=== PATIENT | female | born 1960 | race Caucasian/White ===

== ENCOUNTER 2019-07-24 12:40 | Inpatient (IN) | payer BC ==
[2019-07-24] VITALS (371 sets, daily range): BP systolic 146–179; BP diastolic 80–95; PULSE 93–101; TEMP 97.5–98.3; O2SAT 87–100
[~2019-07-24] VITALS: Ht 165.1 cm; Wt 79.3 kg
--- NOTE | 2019-07-24 13:00 | NUR ---
Patient arrives via EMS, She is very short of breath with exertion. 6L O2 nasal cannula. Patient placed in Contact/Droplet isolation, d/t being PUI. Dr. Novak notified of arrival. Patient turned up to 8LO2 and METAL BONDER, Patience called to notify.
[2019-07-24] MEDS ORDERED: PREDNISONE10 MG PO (14:42)
[2019-07-24] MEDS ORDERED: 00186-0370-20 IH (14:43)
[2019-07-24] MEDS ORDERED: ALBUTEROL0.83 MG/ML IH (14:43)
[2019-07-24] MEDS ORDERED: PROAIR HFA0.09 MG/AC IH (14:43)
[2019-07-24 14:59] LABS: ARTERIAL BLD GAS O2 SATURATION 90.7 % (92-100); ARTERIAL BLOOD GAS BASE EXCESS -1.3 (-2-2); ARTERIAL BLOOD GAS HCO3 23.7 meq/L (22-26); ARTERIAL BLOOD GAS PCO2 41.1 mmHg (35-45); ARTERIAL BLOOD GAS PO2 60.2 mmHg (80-100); ARTERIAL BLOOD GAS pH 7.38 (7.35-7.45)
--- NOTE | 2019-07-24 15:00 | NUR ---
Patient is up to 15L NRB mask. RR in 40s. SPo2 95%. Patient, COLLECTIONS ANALYST to give her a duoneb.
--- NOTE | 2019-07-24 18:00 | NUR ---
Phone update given to daughter, Martha.
--- NOTE | 2019-07-24 19:00 | NUR ---
Mame, Daughter, updated at this time. Plan of care discussed.
--- NOTE | 2019-07-24 19:15 | NUR ---
Report given to SELWYN Nieto. Patient resting in bed on 15L NRB mask. RR 40.
[2019-07-24 20:24] LABS: ARTERIAL BLD GAS O2 SATURATION 88.8 % (92-100); ARTERIAL BLD GAS TCO2 CT 23.4; ARTERIAL BLOOD GAS BASE EXCESS -2.3 (-2-2); ARTERIAL BLOOD GAS HCO3 22.2 meq/L (22-26); ARTERIAL BLOOD GAS PCO2 37.9 mmHg (35-45); ARTERIAL BLOOD GAS PO2 57.3 mmHg (80-100); ARTERIAL BLOOD GAS pH 7.39 (7.35-7.45)
[2019-07-24 22:25] LABS: ARTERIAL BLD GAS O2 SATURATION 98.4 % (92-100); ARTERIAL BLD GAS TCO2 CT 23.3; ARTERIAL BLOOD GAS BASE EXCESS -2.9 (-2-2); ARTERIAL BLOOD GAS HCO3 22.1 meq/L (22-26); ARTERIAL BLOOD GAS PCO2 39.7 mmHg (35-45); ARTERIAL BLOOD GAS pH 7.36 (7.35-7.45)
[2019-07-24 22:26] LABS: ARTERIAL BLOOD GAS PO2 135.7 mmHg (80-100)
--- NOTE | 2019-07-24 22:52 | NUR ---
2032 - DR. CARBALLO CALLED BY THIS RN PT'S BLOOD GAS CAME BACK GOOD EXCEPT FOR A LOW O2. RT SUGGESTING HIGH FLOW INSTEAD OF BIPAP, AGREED AND ORDERED REPAT BIPAP AFTER AN HOUR, ORDER PUT IN.
--- NOTE | 2019-07-24 23:01 | NUR ---
REPEAT BLOOD GAS REVEALED HIGH O2 AT 135.7, RT WILL TITRATE DOWN AIRVO. PT RESTING IN BED SLEEPIN, VSS.
[2019-07-25] VITALS (978 sets, daily range): BP systolic 123–161; BP diastolic 95–112; PULSE 87–109; TEMP 98–99.1; O2SAT 89–100
[2019-07-25 04:18] LABS: ARTERIAL BLD GAS O2 SATURATION 95.2 % (92-100); ARTERIAL BLD GAS TCO2 CT 25.3; ARTERIAL BLOOD GAS BASE EXCESS -2.4 (-2-2); ARTERIAL BLOOD GAS HCO3 23.9 meq/L (22-26); ARTERIAL BLOOD GAS PCO2 46.4 mmHg (35-45); ARTERIAL BLOOD GAS PO2 82.1 mmHg (80-100); ARTERIAL BLOOD GAS pH 7.33 (7.35-7.45)
[2019-07-25 04:27] LABS: BASO % 0.2 % (0.0-2.0); GRAN # 13.9 (1.4-6.5); HEMATOCRIT 46.5 % (37.0-47.0); HEMOGLOBIN 15.3 g/dl (12.5-16.0); LYMPH # 1.1 (1.2-3.4); LYMPH % 6.6 % (20.0-51.0); MEAN CELL VOLUME 93 fl (80.0-100.0); MEAN CORPUSCULAR HEMOGLOBIN 31 pg (27.0-31.0); MEAN CORPUSCULAR HGB CONC 33 g/dl (33.0-37.0); MEAN PLATELET VOLUME 9.1 fl (7.4-10.4); MONO # 0.8 (0.1-0.6); MONO % 5.2 % (1.7-9.3); PLATELET COUNT 320 K/mm3 (130-400); RED BLOOD COUNT 4.98 M/mm3 (4.10-5.30); REDCELL DISTRIBUTION WIDTH-CV 12.7 % (11.5-14.5)
[2019-07-25 05:17] LABS: CALCIUM 9.7 mg/dL (8.4-10.2); CREATININE, serum 0.48 (0.52-1.25); MAGNESIUM 2.4 mg/dL (1.6-2.3); POTASSIUM 4.8 mmol/L (3.4-5.0)
[2019-07-25 05:52] LABS: ARTERIAL BLD GAS O2 SATURATION 95.1 % (92-100); ARTERIAL BLD GAS TCO2 CT 24.5; ARTERIAL BLOOD GAS BASE EXCESS -2.6 (-2-2); ARTERIAL BLOOD GAS HCO3 23.2 meq/L (22-26); ARTERIAL BLOOD GAS PCO2 43.3 mmHg (35-45); ARTERIAL BLOOD GAS PO2 80.8 mmHg (80-100); ARTERIAL BLOOD GAS pH 7.35 (7.35-7.45)
--- NOTE | 2019-07-25 07:30 | NUR ---
Bedside shift report received from SELWYN Nieto. Patient is lying in bed currently on BiPAP at 60%. Patient continues to have labored, shallow breathing, but vital signs stable. Full assessment completed. Call light within reach. Bed in lowest position. Side rails up x2. Patient has no complaints or concerns at this time.
--- NOTE | 2019-07-25 07:36 | NUR ---
report given to SELWYN Roe.
--- NOTE | 2019-07-25 09:30 | NUR ---
Patient's family, Mame, updated on patient's current status and plan of care.
--- NOTE | 2019-07-25 10:09 | NUR ---
DECREASED SETTINGS AT THIS TIME. IPAP DECREASED TO 16 (FROM20) AND IPAP DECREASED TO 8 (FROM10) FIO2 DECREASED TO 50%. PT IS STILL TACHYPNEIC.
--- NOTE | 2019-07-25 13:27 | NUR ---
Patient presses call light and states "I can't breathe". Patient heart rate in the low 100's, respiratory rate 45-50. Patient instructed to take slow deep breaths and patient attempts but is unable. She states she wants the BiPAP off. Patient taken off of BiPAP and placed on nonrebreather at 15L. Oxygen saturations have no dipped below 95% the entire time. Patience, RT called and notified of taking patient off BiPAP and patient's current respiratory status. Pulmonogist notified of patient's current status as well, orders received for NOW dose of Ativan. Refer to orders and MAR.
--- NOTE | 2019-07-25 13:38 | NUR ---
Ativan given, patient breathing starts to come down and patient starts to relax a bit more as RN in the room and talking with her. Patient asked if she feels like she starts to panick and can't catch her breath. Patient responds "Yes". Patient says she feels anxious and it makes her breathing worse. After about 5 minutes, patient placed back on BiPAP per her request and is tolerating well at this time.
--- NOTE | 2019-07-25 16:44 | NUR ---
Patient's vital signs are stable with respiratory rate between 28-32. Patient is calm and resting, but continues to use her accessory muscles to breathe and has dyspnea at rest. Hospitalist, structural steel equipment erector, and RT aware. Increased dose of solumedrol Dr. Marks ordered will be given at 1800 and patient is optimistic that it will improve her symptoms.
--- NOTE | 2019-07-25 18:00 | NUR ---
Patient becomes more tachypneic with resp rate in the low to mid 40's and is having more labored breathing. Patient states she has anxiety and feels claustrophobic. Patient talked calmly to and educated to take slow, deep breaths and a cool damp cloth was placed on her chest. Solumedrol given per doctors order, patient assisted to bedside commode without complication, and once back in bed and allowed to rest for a few minutes she is able to calm down a bit. She continues to have dyspnea that is unchanged from the beginning of shift. Dr. Ochoa notified of this event, no orders received at this time.
--- NOTE | 2019-07-25 18:50 | NUR ---
Patient has calmed down for the most part, but continues to have dyspnea that is unchanged from the beginning of the shift. She remains on BiPAP at this time.
--- NOTE | 2019-07-25 19:26 | NUR ---
Bedside shift report given to SELWYN Trinh at this time. Both Vee and another daughter were updated via telephone on their mom's current status and have no questions or concerns at this time.
--- NOTE | 2019-07-25 20:04 | NUR ---
Assessment complete; Patient visibly short of breath. Shortness of breath is Reports rib pain with cough but denies other sources of pain. PRN ativan administered to help with shortness of air. Wheezing heard throughout lung colon. Currenlty wearing BIPAP. Will continue to monitor.
--- NOTE | 2019-07-25 21:30 | NUR ---
[facility] faxed over COVID19 results: Negative.
[2019-07-26] VITALS (1235 sets, daily range): BP systolic 128–143; BP diastolic 84–94; PULSE 89–103; TEMP 97.7–98.6; O2SAT 82–100
--- NOTE | 2019-07-26 00:05 | NUR ---
Patient stating she does not feel like she is getting "enough air" 02 92% on BIPAP. Labored respirations and appears anxious. Administered PRN ativan to assist with anxiety. Will continue to monitor.
--- NOTE | 2019-07-26 07:20 | NUR ---
This nurse received report from SELWYN Trinh. Patient is resting comfortably in bed. Call light and bedside table are within reach.
--- NOTE | 2019-07-26 07:35 | NUR ---
Report given to SELWYN Boyd and SELWYN Colvin. Patient care transfered.
--- NOTE | 2019-07-26 10:30 | NUR ---
Patient removed from BiPap and was placed on high flow NC. Initially on 15 liters and then decreased to 12 lpm. Maintained SPO2 of 94%. Patient continues to have dyspnea with exertion. Patient exhibits evidence of anxiety and mentioned she is claustrophobic with BiPaP machine and is starting to feel depressed due to her current medical condition. Emotional support provided.
--- NOTE | 2019-07-26 13:09 | NUR ---
SW attempted interview, however patient had continued shortness of breath, and so SW contacted patients Giovanni at [phone] to complete interview. Patients Giovanni and Daughter Martha(same phone number) are both EMR and primary support for patient. patient does not currently have a DPOA per patient's . Patient did not utilize any DME, and her PCP is Dr. Floyd in [place]. PAtient did not have any upcoming appointments. Patient gets her medications from [facility] pharmacy with no complications. patient's denied any needs at this time. Sw will continue to follow. Patient's asked to be contacted and updated.
--- NOTE | 2019-07-26 19:00 | NUR ---
This nurse gave report to SELWYN Garcia. Patient is resting comfortably in bed with call light and bedside table within reach.
--- NOTE | 2019-07-26 19:00 | NUR ---
This nurse gave report to SELWYN Garcia. Patient is resting comfortably in bed with call light and bedside table within reach.
--- NOTE | 2019-07-26 19:40 | NUR ---
RECEIVED REPORT FROM SELWYN JOSHI. PT LYING IN BED WATCHING TV. PT ON 12L HFNC. CALL LIGHT WITHIN REACH.
--- NOTE | 2019-07-26 21:00 | NUR ---
PT PLACED ON BIPAP AT THIS TIME FOR SLEEP BY RT.
[2019-07-27] VITALS (915 sets, daily range): BP systolic 114–159; BP diastolic 76–104; PULSE 67–105; TEMP 97.9–98; O2SAT 66–99
--- NOTE | 2019-07-27 03:52 | NUR ---
PT ASSISTED TO BSC AND BACK TO BED. PT IS TEARFUL AND STATES " I HATE BEING HERE. I WANT TO GO HOME." RR IN THE 30s. POX NOTED TO BE ON RA AFTER A FEWE MINTUES TO BE 76%. PT PLACEDON 12L HFNC AND ENCOURAGED TO TAKE A FEW DEEP BREATHS, FOLLOWS INSTRUCTIONS WELL. PT ASKS FOR SOMETHING TO HELP HER ANXIETY CALM DOWN, SEE MAR. POX INCREASES TO 91-92% ON 12L HFNC. RR STILL IN THE 30s. PT APPEARS TO BE CALMER AND RELAXED. RESPIRATORY EFFORT CLOSELY MONITORED.
--- NOTE | 2019-07-27 03:59 | NUR ---
PT PLACED BACK ON BIPAP NOW THAT HER ANXIETY HAS DECREASED. RR STILL IN 30s. POX 94% ON BIPAP WITH FIO2 OF 45%.
[2019-07-27 05:23] LABS: BASO % 0.1 % (0.0-2.0); GRAN # 14.1 (1.4-6.5); GRAN % 89.2 % (42.2-75.2); HEMATOCRIT 45.2 % (37.0-47.0); HEMOGLOBIN 14.9 g/dl (12.5-16.0); LYMPH # 0.8 (1.2-3.4); LYMPH % 5.2 % (20.0-51.0); MEAN CELL VOLUME 93 fl (80.0-100.0); MEAN CORPUSCULAR HEMOGLOBIN 31 pg (27.0-31.0); MEAN CORPUSCULAR HGB CONC 33 g/dl (33.0-37.0); MEAN PLATELET VOLUME 9.6 fl (7.4-10.4); MONO # 0.7 (0.1-0.6); MONO % 4.7 % (1.7-9.3); PLATELET COUNT 308 K/mm3 (130-400); RED BLOOD COUNT 4.86 M/mm3 (4.10-5.30); REDCELL DISTRIBUTION WIDTH-CV 12.2 % (11.5-14.5)
[2019-07-27 05:34] LABS: CALCIUM 9.5 mg/dL (8.4-10.2); CREATININE, serum 0.5 (0.52-1.25); POTASSIUM 4.5 mmol/L (3.4-5.0)
--- NOTE | 2019-07-27 07:26 | NUR ---
This nurse received report from SELWYN Garcia. Patient is resting comfortably in bed. Call light and bedside table are within reach.
[2019-07-28] VITALS (833 sets, daily range): BP systolic 135–158; BP diastolic 81–101; PULSE 68–92; TEMP 98.1–98.3; O2SAT 78–100
--- NOTE | 2019-07-28 07:30 | NUR ---
Report recieved from overnight RN. Patient is resting in bed on bi-pap. Alert and oriented, responding to verbal stimuli. Heart sounds regular, lung sounds course with wheezing noted. Bowel sounds hypoactive. IV to left forearm saline locked. Vital signs stable, NSR. Patient removed off bi pap. Placed on 9L hi amy nasal cannula oxygen. Ambulated to commode and chair without difficulty. States she does not have an appetite but would like to drink ensure. Patient denies any pain at this time. Will continue to monitor.
--- NOTE | 2019-07-28 09:27 | NUR ---
BO met with the patient to follow up and to review discharge plan. The patient was sitting up in her chair and she states that she is doing okay. She reports that she plans to return back home with her and daughter upon discharge. She states that her daughter and two grandchildren are able to help her, if needed. SW to continue to follow.
[2019-07-28 10:53] LABS: CALCIUM 9.8 mg/dL (8.4-10.2); CREATININE, serum 0.46 (0.52-1.25); POTASSIUM 4.3 mmol/L (3.4-5.0)
--- NOTE | 2019-07-28 11:00 | NUR ---
Patient complains of soreness to neck, warm compress provided. Reports relief. Patient requests to get back in bed on bi-pap. Transfers without difficulty. Resting in bed comfortably. Will continue to monitor.
[2019-07-28 11:09] LABS: HEMOGLOBIN 15.5 g/dl (12.5-16.0); MEAN CELL VOLUME 93 fl (80.0-100.0); MEAN CORPUSCULAR HEMOGLOBIN 31 pg (27.0-31.0); MEAN CORPUSCULAR HGB CONC 34 g/dl (33.0-37.0); MEAN PLATELET VOLUME 9.5 fl (7.4-10.4); PLATELET COUNT 324 K/mm3 (130-400); RED BLOOD COUNT 4.95 M/mm3 (4.10-5.30); REDCELL DISTRIBUTION WIDTH-CV 12.1 % (11.5-14.5)
--- NOTE | 2019-07-28 11:34 | NUR ---
First visit from the thread grinder. No needs right now.
[2019-07-28 12:39] LABS: BAND 2 % (0-10); LYMPHOCYTE 7 % (20.0-51.0); NEUTROPHILS 91 % (42.0-75.2); PLATELET ESTIMATE NORMAL (NORMAL)
--- NOTE | 2019-07-28 15:45 | NUR ---
Patient doing well on 10L via high flow nasal cannula. Titrated down to 7L SpO2 ranging from 92-96%. Patient provided bed bath and shower cap. Improved mood noted. Patient states she feels much better. Transfered to recliner. Will continue to monitor.
--- NOTE | 2019-07-28 17:45 | NUR ---
Patient SpO2 maintained at 96%. Decresed oxygen to 5L. Tolerating without difficulty. SpO2 maintained at 95%. RT made aware, will continue to monitor.
[2019-07-29] VITALS (378 sets, daily range): BP systolic 131–160; BP diastolic 71–99; PULSE 59–78; TEMP 96.5–99.1; O2SAT 85–100
[2019-07-29 05:11] LABS: BASO % 0.1 % (0.0-2.0); EOS % 0.2 % (0-4.0); GRAN # 10.5 (1.4-6.5); GRAN % 89.5 % (42.2-75.2); HEMATOCRIT 43.9 % (37.0-47.0); HEMOGLOBIN 14.6 g/dl (12.5-16.0); LYMPH # 0.6 (1.2-3.4); LYMPH % 5.4 % (20.0-51.0); MEAN CELL VOLUME 93 fl (80.0-100.0); MEAN CORPUSCULAR HEMOGLOBIN 31 pg (27.0-31.0); MEAN CORPUSCULAR HGB CONC 33 g/dl (33.0-37.0); MEAN PLATELET VOLUME 9.8 fl (7.4-10.4); MONO # 0.5 (0.1-0.6); MONO % 4.2 % (1.7-9.3); PLATELET COUNT 276 K/mm3 (130-400); RED BLOOD COUNT 4.73 M/mm3 (4.10-5.30); REDCELL DISTRIBUTION WIDTH-CV 12.1 % (11.5-14.5)
[2019-07-29 05:26] LABS: CALCIUM 9.4 mg/dL (8.4-10.2); CREATININE, serum 0.42 (0.52-1.25); POTASSIUM 4.3 mmol/L (3.4-5.0)
--- NOTE | 2019-07-29 07:15 | NUR ---
Bedside shift report received from SELWYN Culver. Patient is sitting in bed in no apparent distress, vital signs stable, full assessment completed. Bed in lowest position. Side rails up x2. Call light within reach.
--- NOTE | 2019-07-29 11:04 | NUR ---
SW attended clinical rounds. The patient is currently on 5 liters of supplemental oxygen and used a bipap over night. The patient is to transfer to the medical floor today. SW to continue to follow.
--- NOTE | 2019-07-29 12:37 | NUR ---
Report given to SELWYN Salas at this time.
--- NOTE | 2019-07-29 13:08 | NUR ---
Patient transferred to medical floor via wheelchair by SELWYN Salas with no complications. Patient has no complaints or concerns. Care handed over at this time.
--- NOTE | 2019-07-29 18:54 | NUR ---
Pt had uneventful day after transfer from [facility]. Pt had a shower, and then has remained in bed the rest of the day. The pt does get up from time to time by herself to go to the restroom, and then back to bed. Pt is stable, and is not at extraordinary risk of falling. Report given to SELWYN Catherine. Transfer of Care complete.
--- NOTE | 2019-07-29 20:20 | NUR ---
Patient assessed at this time. Alert and oriented, and able to make needs known. Denies having pain and discomfort at this this time. Peripheral IV to left forearm. Does report some SOB with exertion. Respirations shallow, labored with exertion, with pursed lip breathing. On oxygen at 5 L/min via high flow NC. LS CTA upper, diminished lower. Does have occasional moist cough. Unable to observe sputum, but patient describes it was clear. Denies chest pain and discomfort. HRR. Telemetry in place. Capilly refill less than 3 seconds. Non-tenting skin turgor. BSAx4. Abdomen soft and non-tender. No edema. Voices no questions, needs, or concerns at this time. Resting in bed with call light within reach.
[2019-07-30 03:37] VITALS: BP 155/85; PULSE 63; TEMP 97.4
--- NOTE | 2019-07-30 05:43 | NUR ---
Patient wore BIPAP most of the night. Changed over to 5 L/min via high flow NC at this time as requested. Voices no questions, needs, or concerns at this time. Resting in bed with call light within reach.
[2019-07-30 07:30] VITALS: BP 142/76; PULSE 69; TEMP 98.1
--- NOTE | 2019-07-30 08:54 | NUR ---
Pt assessment completed and charted. Medications administered per JUN. Pt is A&O, independent in room, denies any chest pain, dizziness, N/V/D. States her breathing has improved greatly since admission. Pt currently on 5L HF NC, breathing even and unlabored at this time, pt sitting in bed watching tv. LFA INT IV flushes w/o complication. No further needs expressed at this time.
[2019-07-30 11:12] VITALS: BP 125/75; PULSE 64; TEMP 98.5
--- NOTE | 2019-07-30 12:22 | NUR ---
First visit from the software maintenance engineer. No needs right now.
--- NOTE | 2019-07-30 14:17 | NUR ---
Art Instructor spoke with SELWYN Mary who advised patient has been independent in room and did not feel patient required PT/OT eval.
[2019-07-30 15:12] VITALS: BP 127/72; PULSE 84; TEMP 98.1
--- NOTE | 2019-07-30 19:45 | NUR ---
Patient assessed at this time. Alert and oriented x 4, and able to make needs known. Denies having pain and discomfort at this time. Peirphreal IV to left forearm. Denies SOB and dyspnea. On oxygen at 4 L/min via NC. Respirations labored with exertion, with pursed lip breathing. LS CTA in upper lobes, diminished in lower lobes. HRR. Telemetry in place. Capillary refill less than 3 seconds. Non-tenting skin turgor. BSAx4. Abdomen soft and non-tender. No edema. Voices no questions, needs, or concerns at this time. Resting in bed with call light within reach.
[2019-07-30 19:53] VITALS: BP 141/87; PULSE 74; TEMP 98
[2019-07-31 00:39] VITALS: BP 142/84; PULSE 65; TEMP 97.4
[2019-07-31 04:28] VITALS: BP 147/80; PULSE 56; TEMP 97.8
--- NOTE | 2019-07-31 05:07 | NUR ---
Patient has worn BIPAP most of the night. Denies having pain and discomfort. Voices no no questions, needs, or concerns at this time. Resting in bed with call light within reach.
[2019-07-31 08:48] VITALS: BP 112/66; PULSE 91; TEMP 98.5
--- NOTE | 2019-07-31 09:05 | NUR ---
Pt awake and alert this morning, no C/O pain at this time, shift assessment complete, left Pt call light in reach, bed in lowest position.
--- NOTE | 2019-07-31 09:39 | NUR ---
SPO2 92% ON 4 LPM NC. O2 TURNED OFF WITH PT RESTING AT SIDE OF BED. SPO2 DROPPED QUICKLY TO 87% AFTER ABOUT 2 MINUTES. O2 TITRATED BACK UP TO 3 LPM NC FOR SPO2 92%
[2019-07-31] MEDS ORDERED: MUCUS RELIEF200 MG PO (10:03)
[2019-07-31] MEDS ORDERED: PREDNISONE10 MG PO (10:03)
[2019-07-31] MEDS ORDERED: CLEVER CHOICE1 EA20 MC (10:04)
--- NOTE | 2019-07-31 12:49 | NUR ---
Spool Maker was advised that patient to discharge home today and will require home oxygen. BO met with patient and presented DME Choice form. Patient selected [facility] and gave SW permission to sign on her behalf to limit contact. BO placed form in chart. BO faxed signed oxygen order, H&P, Progress note, Facesheet, and RT assessment to [facility]. BO spoke with Kellie at [facility] who advised patient would have to pay $122.64 for the first month. After that, patient has met deductible and would owe approximately $111.00 a month. BO presented that information to patient who believes she can afford it for the time being but was still interested in obtaining a Financial Assistance Application. BO provided. Kellie at [facility] advised they would deliver oxygen to patient's room to get her through the weekend then contact patient to set up home oxygen next week. BO provided this update to patient. Patient denies any further questions or concerns. No additional needs at this time.
--- NOTE | 2019-07-31 13:02 | NUR ---
Pt discharged to home, discussed discharge information with Pt, answered all questions, escorted to entrance, Pt left with family voa private transportation.
== END 2019-07-31 13:04 | disposition home or self-care (01) | DRG 189 ==
LOC: EU 12:40 → MEDICAL 12:40
PROVIDERS: Family Medicine; Student in an Organized Health Care Education/Training Program
PROC: 5A09457 Assistance with Respiratory Ventilation, 24-96 Consecutive Hours, Continuous Positive Airway Pressure (ICD-10-PCS; principal; 2019-07-25)
DX: J96.01 Acute respiratory failure with hypoxia (principal); J45.21 Mild intermittent asthma with (acute) exacerbation; E87.6 Hypokalemia; I10 Essential (primary) hypertension; F17.210 Nicotine dependence, cigarettes, uncomplicated; E66.9 Obesity, unspecified; Z90.710 Acquired absence of both cervix and uterus; Z68.36 Body mass index [BMI] 36.0-36.9, adult
CPT/HCPCS: 99223-AI; 99232-AI; 99233-AI; 99239; A4216; J0456; J0696; J1644; J2060; J2920; J7050; J7512

== ENCOUNTER 2023-07-28 11:16 | Inpatient (IN) | payer BC ==
[2023-07-28] VITALS (78 sets, daily range): BP systolic 159–162; BP diastolic 78–102; PULSE 90–97; TEMP 97.2–97.5; O2SAT 87–98
[~2023-07-28] VITALS: Ht 160 cm; Wt 84.2 kg
[~2023-07-28 11:16] MED LIST: 00186-0370-20 IH; ALBUTEROL0.83 MG/ML IH; CLEVER CHOICE1 EA20 MC; MUCUS RELIEF200 MG PO; NORCO 325 MG-51 TAB PO; PREDNISONE10 MG PO; PROAIR HFA0.09 MG/AC IH
--- NOTE | 2023-07-28 12:08 | NUR ---
1048-RECEIVED A CALL FROM PROVIDER RAHUL RUBIO AT [facility] REQUESTING TRANSFER TO OUR FACILITY FOR ACUTE ASTHMA EXACERBATION. CALL TRANSFERRED TO DR. LAMAS WHO ACCEPTS PATIENT FOR INPATIENT ADMISSION, ICU STATUS. [facility] REPORTING PATIENT IS CURRENTLY ON 15L NRB. DR. LAMAS AND DR. Luna JONES REQUESTING ABG TO BE DONE AT [facility] AND FOR PATIENT TO BE TRANSFERRED VIA EMS ON BIPAP.
--- NOTE | 2023-07-28 12:35 | NUR ---
PT ARRIVED TO UNIT VIA BED BY EMS. NS WITH K+ INFUSING VIA IV. BT ON BIPAP - RESPIRATORY RATE IS IN THE MID 20S. PT CHANGED INTO GOWN AND ALL BELONGINGS ARE IN THE CLOSET. PT BP IS ELEVATED - ALL OTHER VITALS ARE STABLE AND WNL. 02 SAT 93%. PT ORIENTED TO ROOM AND UNIT CALL LIGHT IN REACH.
[2023-07-28] MEDS ORDERED: cefTRIAXone 1 G in Water For Injection,Sterile 10 ML IV SCH (13:15)
[2023-07-28] MEDS ORDERED: Albuterol 0.083% Neb Soln 2.5 MG/3 ML UD IH PRN (13:15)
[2023-07-28] MEDS ORDERED: Doxycycline Hyclate 100 MG in NS 150 ML IV SCH (13:15)
[2023-07-28] MEDS ORDERED: methylPREDNISolone Sod Succ 40 MG/ML VIAL IV SCH (13:15)
[2023-07-28] MEDS ORDERED: Pantoprazole 40 MG in NS 10 ML IV SCH (13:25)
[2023-07-28] MEDS ORDERED: Insulin Lispro (HumaLOG) SQ SCH (13:29)
[2023-07-28] MEDS ORDERED: Dextrose 50% Water 25 GM/50 ML SYRINGE IV PRN (13:45)
[2023-07-28] MEDS ORDERED: Dextrose (Glucose) 15 GM (4 x 3.75 GM) Chewable TABLET PACK PO PRN (13:45)
[2023-07-28] MEDS ORDERED: Glucagon 1 MG VIAL IM PRN (13:45)
[2023-07-28] MEDS ORDERED: Albuterol/Ipratropium 3 MG-0.5 MG/3 ML Neb Soln IH SCH (14:00)
[2023-07-28] MEDS ORDERED: 00186-0370-20 (14:33)
[2023-07-28] MEDS ORDERED: ASPIRIN E.C. 8181 MG PO (14:35)
[2023-07-28] MEDS ORDERED: AMOXICILLIN 8751 TAB PO (14:36)
[2023-07-28 14:51] LABS: ARTERIAL BLD GAS O2 SATURATION 89.7 % (92-100); ARTERIAL BLD GAS TCO2 CT 21.5; ARTERIAL BLOOD GAS BASE EXCESS -4.8 (-2-2); ARTERIAL BLOOD GAS HCO3 20.3 meq/L (22-26); ARTERIAL BLOOD GAS PCO2 38.2 mmHg (35-45); ARTERIAL BLOOD GAS PO2 60.4 mmHg (80-100); ARTERIAL BLOOD GAS pH 7.34 (7.35-7.45)
[2023-07-28] MEDS ORDERED: Heparin 5,000 UNITS/ML 1 ML VIAL SQ SCH (16:00)
[2023-07-28] MEDS ORDERED: LR 1,000 ML IV SCH (16:30)
[2023-07-28] MEDS ORDERED: fentaNYL 100 ML IV SCH (17:45)
[2023-07-28] MEDS ORDERED: Glycopyrrolate 0.2 MG/ML 1 ML VIAL ONE (17:58)
[2023-07-28] MEDS ORDERED: Rocuronium 50 MG/5 ML Multi-Dose VIAL ONE (17:58)
[2023-07-28] MEDS ORDERED: NS 20 ML IV ONE (17:58)
[2023-07-28] MEDS ORDERED: Phenylephrine 10 MG/ML VIAL ONE (17:58)
[2023-07-28] MEDS ORDERED: dexAMETHasone 10 MG/ML VIAL ONE (17:58)
[2023-07-28] MEDS ORDERED: Ondansetron 4 MG/2 ML VIAL ONE (17:58)
[2023-07-28] MEDS ORDERED: Midazolam 2 MG/2 ML VIAL ONE (17:58)
[2023-07-28] MEDS ORDERED: Succinylcholine PF 200 MG/10 ML SYRINGE IV ONE (17:58)
[2023-07-28] MEDS ORDERED: fentaNYL 50 MCG/ML 2 ML VIAL ONE (17:58)
--- NOTE | 2023-07-28 18:23 | NUR ---
AFTER SPEAKING WITH AND IT WAS DEEMED NESSECARY TO INTUBATE THE PT DUE TO HIGH RR, HIGH BP, AND HIGH HR. ELECTROMECHANICAL EQUIPMENT ASSEMBLER WAS CALLED TO INTUBATE. 2 RTS IN ROOM, CHARGE, THIS NURSE, ANOTHER RN, AND MULTIPLE LAUNCH ROCKET SYSTEM CREWMEMBER IN ROOM. ELECTROMECHANICAL EQUIPMENT ASSEMBLER GAVE OWN SEDATION MEDS. AFTER ET TUBE WAS PLACED PROPOFOL DRIP AND FENTANYL DRIP WERE STARTED PER DR ORDERS. SERIES OF EVENTS WERE FOLLOWS: ALL MEDS GIVEN BY ELECTROMECHANICAL EQUIPMENT ASSEMBLER OLERICULTURE TEACHER MARKEL. 3 - 10 DECADRON 1823 - 100MCG PHENYLEPHRINE, 80 LIDOCAINE, 100 PROPOFOL, 100 SUCCIN. 1825 - BIPAP WAS REMOVED 1826 - ET TUBE WAS PLACED BY ELECTROMECHANICAL EQUIPMENT ASSEMBLER. SIZE 7.5, 22 AT THE TEETH. 1826 - PROPOFOL / FENT. STARTED PER TITRATION ORDERS. 1835 - 183 - 20MG PROPOFOL BOLUS PER ELECTROMECHANICAL EQUIPMENT ASSEMBLER. 184 - 40 OF ROCURONIUM DUE TO INTOLERANCE OF VENT. 190 - ARTERIAL LINE PLACED BY ELECTROMECHANICAL EQUIPMENT ASSEMBLER. PT IS TOLERATING VENTILATOR. VITALS STABLE AT THIS TIME.
--- NOTE | 2023-07-28 18:48 | NUR ---
PT INTUBATED BY CNRA WITH 7.5 ETT SECURED AT 22 AT THE TEETH. +BLBS. +COLOR CHANGE AND AWAITING CXR. PT PLACED ON VENT SETTINGS PER MD ORDERS. NO ADVERSE REACTIONS. PT TOLERATED WELL.
[2023-07-28 18:49] LABS: HEMATOCRIT 48.4 % (37.0-47.0); HEMOGLOBIN 16.2 g/dl (12.5-16.0); MEAN CELL VOLUME 92 fl (80.0-100.0); MEAN CORPUSCULAR HEMOGLOBIN 31 pg (27-31); MEAN CORPUSCULAR HGB CONC 34 g/dl (33.0-37.0); MEAN PLATELET VOLUME 8.8 fl (7.4-10.4); PLATELET COUNT 288 K/mm3 (130-400); RED BLOOD COUNT 5.27 M/mm3 (4.10-5.30)
[2023-07-28] MEDS ORDERED: Formoterol 20 MCG,Budesonide 0.5 MG IH SCH (19:00)
[2023-07-28] MEDS ORDERED: Formoterol Neb Soln 20 MCG/2 ML UD IH SCH (19:00)
[2023-07-28] MEDS ORDERED: Budesonide Neb Susp 0.5 MG/2 ML AMP IH SCH (19:00)
[2023-07-28 19:08] LABS: ALBUMIN 4.1 g/dL (3.4-4.8); BILIRUBIN,TOTAL 0.5 mg/dL (0.2-1.2); CALCIUM 9.3 mg/dL (8.4-10.2); CREATININE, serum 0.69 mg/dL (0.57-1.11); MAGNESIUM 2.2 mg/dL (1.6-2.6); POTASSIUM 4.8 mEq/L (3.5-4.5); TOTAL PROTEIN 7.9 g/dl (6.2-8.1)
--- NOTE | 2023-07-28 19:15 | NUR ---
Received report from SELWYN Campos.
[2023-07-28 19:21] LABS: BAND 3 % (0-10); LYMPHOCYTE 1 % (20.0-51.0); NEUTROPHILS 92 % (42.0-75.2); PLATELET ESTIMATE NORMAL (NORMAL)
--- NOTE | 2023-07-28 19:31 | NUR ---
THIS NURSE CALLED DR. Luna JONES AND NOTIFED THAT PT IS NOW INTUBATED AND SEDATED. IS MAXED ON PROPOFOL AT 50 AND FENTANYL AT 200. HAVING PEAK PRESSURES IN THE UPPER 30'S AND LOW 40'S. NEW ORDER RECEIVED FOR VERSED GTT, 10MG PUSH OF VECURONIUM, AND VECURONIUM GTT FOR VENT COMPLIANCE.
[2023-07-28] MEDS ORDERED: Midazolam 100 ML IV SCH (19:45)
[2023-07-28] MEDS ORDERED: VECURONIUM IV SCH (19:45)
[2023-07-28] MEDS ORDERED: NS IV SCH (19:45)
[2023-07-28] MEDS ORDERED: Vecuronium 10 MG VIAL IV ONE (19:45)
[2023-07-28 20:41] LABS: ARTERIAL BLOOD GAS HCO3 20.2 meq/L (22-26); ARTERIAL BLOOD GAS PCO2 46.8 mmHg (35-45); ARTERIAL BLOOD GAS PO2 230.4 mmHg (80-100); ARTERIAL BLOOD GAS pH 7.25 (7.35-7.45)
[2023-07-28 20:42] LABS: ARTERIAL BLD GAS O2 SATURATION 99.3 % (92-100); ARTERIAL BLD GAS TCO2 CT 21.7
[2023-07-28] MEDS ORDERED: Sodium Bicarbonate/Water,Steri 1,150 ML IV SCH (21:00)
--- NOTE | 2023-07-28 21:00 | NUR ---
Upon start of NOC shift, patient noted to be frequently coughing and setting off ventilator alarm. SBPs 150-160s. Dr. Massey was notified by day shift RNVee. Orders received to initiate versed drip and run in addition to propofol and fentanyl drips. Orders were received for vecuronium push and drip if needed. Once versed added, patient quickly became much more tolerant of ventilator. At this time, patient arouses to painful stimuli. Vitals within normal limits.
[2023-07-28 23:41] LABS: ARTERIAL BLD GAS O2 SATURATION 94.9 % (92-100); ARTERIAL BLD GAS TCO2 CT 22.6; ARTERIAL BLOOD GAS BASE EXCESS -4.5 (-2-2); ARTERIAL BLOOD GAS HCO3 21.3 meq/L (22-26); ARTERIAL BLOOD GAS PCO2 41.9 mmHg (35-45); ARTERIAL BLOOD GAS PO2 79.8 mmHg (80-100); ARTERIAL BLOOD GAS pH 7.33 (7.35-7.45)
[2023-07-29] VITALS (159 sets, daily range): BP systolic 107–156; BP diastolic 53–77; PULSE 73–93; TEMP 97.6–98.9; O2SAT 91–98
--- NOTE | 2023-07-29 | NUR ---
Patient unarousable to painful stimuli with midnight assessment. Beginning to titrate sedation dosages down, see IV drip titrations .
[2023-07-29 03:40] LABS: COLLECTION METHOD CATHETER
[2023-07-29 03:48] LABS: PH 5.5 (5.0-8.5); URINE APPEARANCE CLEAR (CLEAR/HAZY); URINE BLOOD TRACE (NEGATIVE); URINE COLOR YELLOW (YELLOW); URINE GLUCOSE 1+ (NEGATIVE); URINE KETONE NEGATIVE (NEGATIVE); URINE NITRATE NEGATIVE (NEGATIVE); URINE PROTEIN(semi-quant) TRACE (NEGATIVE); URINE UROBILINOGEN 0.2 E.U/dL (0.2-1.0)
[2023-07-29 05:28] LABS: MEAN CELL VOLUME 93 fl (80.0-100.0); MEAN CORPUSCULAR HEMOGLOBIN 31 pg (27-31); MEAN CORPUSCULAR HGB CONC 33 g/dl (33.0-37.0); MEAN PLATELET VOLUME 9.4 fl (7.4-10.4); PLATELET COUNT 256 K/mm3 (130-400)
[2023-07-29 05:39] LABS: HEMATOCRIT 41.7 % (37.0-47.0); HEMOGLOBIN 13.8 g/dl (12.5-16.0)
[2023-07-29 05:47] LABS: CALCIUM 9.1 mg/dL (8.4-10.2); CREATININE, serum 0.77 mg/dL (0.57-1.11); MAGNESIUM 2.1 mg/dL (1.6-2.6); POTASSIUM 3.6 mEq/L (3.5-4.5)
[2023-07-29 05:54] LABS: ARTERIAL BLD GAS O2 SATURATION 97.4 % (92-100); ARTERIAL BLD GAS TCO2 CT 21.2; ARTERIAL BLOOD GAS BASE EXCESS -3.7 (-2-2); ARTERIAL BLOOD GAS HCO3 20.2 meq/L (22-26); ARTERIAL BLOOD GAS PCO2 32.8 mmHg (35-45); ARTERIAL BLOOD GAS PO2 98.7 mmHg (80-100); ARTERIAL BLOOD GAS pH 7.41 (7.35-7.45)
[2023-07-29 06:00] LABS: BAND 7 % (0-10); LYMPHOCYTE 1 % (20.0-51.0); NEUTROPHILS 87 % (42.0-75.2); PLATELET ESTIMATE NORMAL (NORMAL)
--- NOTE | 2023-07-29 07:00 | NUR ---
Report received from SELWYN Turner; patient currently on ventilator with fentanyl, propofol, and versed running for sedation. Patient also has bicarb and LR running; all meds and fluids are running through patient's peripheral lines. PICC team has been notified that patient will need a line today. Patient has ET tube, OG tube, and Lomas catheter in place, as well as an ART line. No other lines or tubes are in place at this time. Patient's vital signs are within normal limits this morning.
[2023-07-29] MEDS ORDERED: Sodium Bicarbonate 650 MG TAB PO SCH (09:00)
[2023-07-29] MEDS ORDERED: CELEXA 20MG20 MG/TAB PO (09:17)
[2023-07-29] MEDS ORDERED: Potassium Bicarbonate/Citrate 20 MEQ Effervescent TAB PO SCH (10:30)
[2023-07-29] MEDS ORDERED: *Potassium Replacement Protocol MC SCH (10:30)
--- NOTE | 2023-07-29 17:30 | NUR ---
Sedation vacation was shortened today as patient became increasingly agitated, hypertensive, and tachycardic. Sedation was reset to previous levels.
--- NOTE | 2023-07-29 19:45 | NUR ---
Received report from SELWYN Gonzalez. Patient resting quietly in bed. Remains on ventilator, tolerating well. Continues to receive fentanyl, propofol, and versed drips, see IV drip titrations. Vitals within normal limits.
--- NOTE | 2023-07-29 21:13 | NUR ---
VENT ALARM "VT NOT MET DUE TO HIGH PEAK PRESSURES" CONTINOUSLY ALARMING. PT SXN'D AND PRN ALBUTEROL GIVEN.
[2023-07-30] VITALS (19 sets, daily range): BP systolic 111–138; BP diastolic 52–62; PULSE 70–82; TEMP 98.1–98.8; O2SAT 89–96
--- NOTE | 2023-07-30 01:47 | NUR ---
HIGH PAP PRESSURE INCREASED DUE TO PT NOT BEING DELIVERED ENOUGH VOLUME. RN NOTIFIED. PEAK PRESSURES AROUND 40 CMH20. PPLAT 34 CMH20.
[2023-07-30 04:57] LABS: HEMATOCRIT 37.7 % (37.0-47.0); HEMOGLOBIN 12.6 g/dl (12.5-16.0); MEAN CELL VOLUME 91 fl (80.0-100.0); MEAN CORPUSCULAR HEMOGLOBIN 30 pg (27-31); MEAN CORPUSCULAR HGB CONC 33 g/dl (33.0-37.0); MEAN PLATELET VOLUME 9.5 fl (7.4-10.4); PLATELET COUNT 228 K/mm3 (130-400); RED BLOOD COUNT 4.14 M/mm3 (4.10-5.30); REDCELL DISTRIBUTION WIDTH-CV 13.2 % (11.5-14.5)
[2023-07-30 05:19] LABS: CALCIUM 8.8 mg/dL (8.4-10.2); CREATININE, serum 0.7 mg/dL (0.57-1.11); MAGNESIUM 2.3 mg/dL (1.6-2.6); POTASSIUM 3.9 mEq/L (3.5-4.5)
[2023-07-30 05:38] LABS: BAND 6 % (0-10); LYMPHOCYTE 5 % (20.0-51.0); NEUTROPHILS 86 % (42.0-75.2); PLATELET ESTIMATE NORMAL (NORMAL)
[2023-07-30 05:47] LABS: ARTERIAL BLD GAS O2 SATURATION 97.7 % (92-100); ARTERIAL BLD GAS TCO2 CT 24.4; ARTERIAL BLOOD GAS BASE EXCESS -1.4 (-2-2); ARTERIAL BLOOD GAS HCO3 23.2 meq/L (22-26); ARTERIAL BLOOD GAS PCO2 38.8 mmHg (35-45); ARTERIAL BLOOD GAS PO2 110.1 mmHg (80-100)
--- NOTE | 2023-07-30 10:48 | NUR ---
HEAD TO TOE ASSESMENT COMPLETED. PATIENT RESPONDS TO PAINFUL STIMULI. PATIENT NOT TOLERATING VENTILATOR WELL WITH LOTS OF COUGHING, BUCKING, AND HIGH PEAK PRESSURES. PUPILS EQUAL AND REACTIVE. HEART SOUNDS REGULAR WITH S1 AND S2 NOTED. LUNG SOUNDS HAVE WHEEZES BILATERALLY INSPIRATORY AND EXPERITORY. RIGHT SIDE LOBES HAVE RHONCHI SOUNDS NOTED. BOWEL SOUNDS ACTIVE X4. MAXWELL IN PLACE DRAINING CLEAR YELLOW URINE. PULSES INTACT IN ALL EXTREMITIES. TRAIN OF FOUR 3/4. MEDICATIONS ADMINISTERED PER EMAR. BED IN A LOW POSITION. SOFT WRIST RESTRAINTS IN PLACE.
[2023-07-30] MEDS ORDERED: Insulin Lispro (HumaLOG) SQ SCH (12:00)
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
--- NOTE | 2023-07-30 17:38 | NUR ---
UNABLE TO PERFORM SEDATION VACATION D/T PATIENT NOT TOLERATING VENTILATOR WELL.
--- NOTE | 2023-07-30 19:05 | NUR ---
Received report from SELWYN Mckeon. Patient resting quietly in bed. Remains on ventilator, tolerating well. Continues to receive fentanyl, propfol, versed, and vecuronium drips, see IV drip titrations. Vitals within normal limits.
--- NOTE | 2023-07-30 21:45 | NUR ---
Patient's initial TOF at 1999 for this shift 07/17. Vecuronium drip initiated earlier today to assist with patient's high intrinsic PEEP and peak pressures. Per RT, patient currently pulling peak pressures of 42-45. Vecuronium titrated up according to orders in EMAR. See IV drip titrations.
[2023-07-31] VITALS (58 sets, daily range): BP systolic 103–154; BP diastolic 55–83; PULSE 63–99; TEMP 97.8–99.4; O2SAT 85–97
--- NOTE | 2023-07-31 | NUR ---
Patient's TOF with 0000 assessment 2/4. She is minimally responsive to all stimuli. Peak pressures within desired limits of 35-40.
--- NOTE | 2023-07-31 00:13 | NUR ---
SMALL RED AREA NOTED ON TONGUE. RN NOTIFIED. TONGUE REPOSITIONED IN MOUTH.
--- NOTE | 2023-07-31 05:15 | NUR ---
PATIENT CONTINUES TO RECEIVE VECURONIUM DRIP. NO SEDATION VACATION PERFORMED AT THIS TIME.
[2023-07-31 05:38] LABS: ARTERIAL BLD GAS O2 SATURATION 94.7 % (92-100); ARTERIAL BLD GAS TCO2 CT 25.9; ARTERIAL BLOOD GAS BASE EXCESS 0.1 (-2-2); ARTERIAL BLOOD GAS HCO3 24.7 meq/L (22-26); ARTERIAL BLOOD GAS PCO2 39.9 mmHg (35-45); ARTERIAL BLOOD GAS PO2 74.4 mmHg (80-100); ARTERIAL BLOOD GAS pH 7.41 (7.35-7.45)
[2023-07-31 05:39] LABS: HEMATOCRIT 38.4 % (37.0-47.0); HEMOGLOBIN 12.7 g/dl (12.5-16.0); MEAN CELL VOLUME 95 fl (80.0-100.0); MEAN CORPUSCULAR HEMOGLOBIN 31 pg (27-31); MEAN CORPUSCULAR HGB CONC 33 g/dl (33.0-37.0); MEAN PLATELET VOLUME 9.7 fl (7.4-10.4); PLATELET COUNT 222 K/mm3 (130-400); RED BLOOD COUNT 4.06 M/mm3 (4.10-5.30); REDCELL DISTRIBUTION WIDTH-CV 13.2 % (11.5-14.5)
[2023-07-31 05:46] LABS: CALCIUM 8.3 mg/dL (8.4-10.2); CREATININE, serum 0.58 mg/dL (0.57-1.11); MAGNESIUM 2.4 mg/dL (1.6-2.6); POTASSIUM 4.1 mEq/L (3.5-4.5)
[2023-07-31 06:18] LABS: LYMPHOCYTE 7 % (20.0-51.0); NEUTROPHILS 93 % (42.0-75.2)
[2023-07-31] MEDS ORDERED: Vecuronium 10 MG VIAL IV ONE (17:45)
--- NOTE | 2023-07-31 18:50 | NUR ---
DR. SPANGLER AND RN AT BEDSIDE GETTING READY TO PERFORM BRONCH.
--- NOTE | 2023-07-31 18:53 | NUR ---
BEDISIDE BRONCH DONE. MULTIPLE MUCUS PLUGS SXN'D FROM ETT. BREATHING TX GIVEN INLINE VIA AEROGEN. ORDERS TO START MUCOMYST AND HYPERTONIC SALINE GIVEN.
[2023-07-31] MEDS ORDERED: Acetylcysteine Neb Soln 200 MG/ML 4 ML VIAL IH SCH (19:00)
[2023-07-31] MEDS ORDERED: Sodium Chloride 3% For Neb Soln 4 ML AMP IH SCH (19:00)
--- NOTE | 2023-07-31 19:38 | NUR ---
ADJUSTED ETT to 25@ lip IN AM PER DR. JONES. TOLERATED WELL. @ AROUND 1730 BAGGED PT BRIEFLY WHILE TURNING AND CLEANING. PLACED BACK ON VENTILATOR FOR A WHILE THEN WAS BAGGED AGAIN DUE TO INCREASED WORK OF BREATHING. RN GAVE SOME MEDS TO HELP WOB AND WAS ABLE TO PLACE BACK ON VENTILATOR WITH PEAK PRESSURES IN LOW 30'S AND OBTAINING FULL TIDAL VOLUMES. DR JONES CAME IN AND PERFORMED A BRONCHOSCOPY AT THAT TIME.
--- NOTE | 2023-07-31 19:51 | NUR ---
PATIENT INTUBATED AND SEDATED. BILATERAL WRIST RESTRAINTS IN PLACE. ET TUBE AT 23 AT THE LIPS. OG TUBE AT 68 AT THE LIPS. PERIPHERAL IV'S IN LEFT FOREARM AND LEFT HAND. PICC IN RIGHT UPPER ARM. RIGHT RADIAL ART LINE IN PLACE AND READING. MAXWELL CATHETER IN PLACE AND DRAINING WITH SOME LEAKAGE. PT IS ON VEC DRIP AND TOF IS BEING USED.
--- NOTE | 2023-07-31 19:56 | NUR ---
SEDATION AND VECURONIUM TITRATED THROUGHOUT THE DAY PER ORDERS FROM DR JONES, SEE TITRATION FLOWSHEET. PT HAS ELEVATED PEAK PRESSURES WITHOUT VECURONIUM, DRIP RESTARTED PER DR JONES AT 1810. SEDATION VACATION NOT DONE THIS EVENING. CONSENT FOR BRONCH OBTAINED VIA PHONE FROM PT'S AT 1800. BRONCH STARTED AT 1810, FINISHED AT 1825, PT TOLERATED WELL.
[2023-08-01] VITALS (136 sets, daily range): BP systolic 125–154; BP diastolic 50–93; PULSE 58–76; TEMP 98.3–99; O2SAT 92–97
[2023-08-01] MEDS ORDERED: Sodium Chloride 3% For Neb Soln 4 ML AMP IH SCH (02:00)
[2023-08-01 05:02] LABS: HEMATOCRIT 37.5 % (37.0-47.0); HEMOGLOBIN 12.3 g/dl (12.5-16.0); MEAN CELL VOLUME 96 fl (80.0-100.0); MEAN CORPUSCULAR HEMOGLOBIN 32 pg (27-31); MEAN CORPUSCULAR HGB CONC 33 g/dl (33.0-37.0); MEAN PLATELET VOLUME 9.6 fl (7.4-10.4); PLATELET COUNT 217 K/mm3 (130-400); RED BLOOD COUNT 3.89 M/mm3 (4.10-5.30); REDCELL DISTRIBUTION WIDTH-CV 13.4 % (11.5-14.5)
[2023-08-01 05:20] LABS: CALCIUM 8.3 mg/dL (8.4-10.2); CREATININE, serum 0.58 mg/dL (0.57-1.11)
[2023-08-01 05:41] LABS: ARTERIAL BLD GAS O2 SATURATION 96.4 % (92-100); ARTERIAL BLD GAS TCO2 CT 27.2; ARTERIAL BLOOD GAS BASE EXCESS 1.1 (-2-2); ARTERIAL BLOOD GAS HCO3 25.9 meq/L (22-26); ARTERIAL BLOOD GAS PCO2 41.7 mmHg (35-45); ARTERIAL BLOOD GAS PO2 87.6 mmHg (80-100); ARTERIAL BLOOD GAS pH 7.41 (7.35-7.45)
[2023-08-01 07:08] LABS: BAND 3 % (0-10); LYMPHOCYTE 4 % (20.0-51.0); NEUTROPHILS 90 % (42.0-75.2); PLATELET ESTIMATE NORMAL (NORMAL)
--- NOTE | 2023-08-01 08:00 | NUR ---
AM ASSESSMENT COMPLETE. PT CURRENTLY ON VECURRONIM DRIP, TO4 ASSESSED TO [employer]. UNABLE TO ASSESS MENTATION/RESPONSE FURTHER DUE TO PARALYTIC. PUPILS 2MM, FENTANYL DECREASED AT THIS TIME. BS HYPOACTIVE, WILL ADDRESS WITH PROVIDER.
[2023-08-01] MEDS ORDERED: NS IV PRN (09:15)
[2023-08-01] MEDS ORDERED: VECURONIUM IV PRN (09:15)
[2023-08-01] MEDS ORDERED: Vecuronium 10 MG VIAL IV PRN (09:30)
[2023-08-01 11:14] LABS: ARTERIAL BLD GAS O2 SATURATION 94.8 % (92-100); ARTERIAL BLD GAS TCO2 CT 29.5; ARTERIAL BLOOD GAS BASE EXCESS 2.7 (-2-2); ARTERIAL BLOOD GAS HCO3 28.1 meq/L (22-26); ARTERIAL BLOOD GAS PCO2 45.9 mmHg (35-45)
--- NOTE | 2023-08-01 17:30 | NUR ---
PT NOT TOLERATING SEDATION VACATION EVIDENCED BY INCREASED PEAK PRESSURES AND DECREASED VENTILATOR COMPLIANCE.
[2023-08-02] VITALS (133 sets, daily range): BP systolic 137–156; BP diastolic 82–91; PULSE 64–80; TEMP 98.6–100; O2SAT 94–97
--- NOTE | 2023-08-02 00:39 | NUR ---
PATIENT INTUBATED AND SEDATED. BILATERAL WRIST RESTRAINTS IN PLACE. ET TUBE AT 24 AT THE TEETH. OG AT 70 AT THE TEETH. PICC LINE TO RIGHT UPPER ARM AND IV IN LEFT WRIST. MAXWELL CATHETER IN PLACE AND DRAINING PROPERLY. RECTAL TUBE IN PLACE AND DRAINING.
[2023-08-02 04:45] LABS: HEMATOCRIT 39.8 % (37.0-47.0); HEMOGLOBIN 13.3 g/dl (12.5-16.0); MEAN CELL VOLUME 94 fl (80.0-100.0); MEAN CORPUSCULAR HEMOGLOBIN 31 pg (27-31); MEAN CORPUSCULAR HGB CONC 33 g/dl (33.0-37.0); MEAN PLATELET VOLUME 9.3 fl (7.4-10.4); PLATELET COUNT 208 K/mm3 (130-400); RED BLOOD COUNT 4.25 M/mm3 (4.10-5.30); REDCELL DISTRIBUTION WIDTH-CV 13.1 % (11.5-14.5)
[2023-08-02 05:04] LABS: CALCIUM 8.5 mg/dL (8.4-10.2); CREATININE, serum 0.55 mg/dL (0.57-1.11); MAGNESIUM 2.3 mg/dL (1.6-2.6); POTASSIUM 4.5 mEq/L (3.5-4.5)
--- NOTE | 2023-08-02 05:07 | NUR ---
PATIENT UNABLE TO TOLERATE SEDATION VACATION, NOT ATTEMPTED.
[2023-08-02 05:13] LABS: ARTERIAL BLD GAS O2 SATURATION 96.2 % (92-100); ARTERIAL BLD GAS TCO2 CT 29.3; ARTERIAL BLOOD GAS BASE EXCESS 2.9 (-2-2); ARTERIAL BLOOD GAS PCO2 44.3 mmHg (35-45); ARTERIAL BLOOD GAS PO2 83.9 mmHg (80-100); ARTERIAL BLOOD GAS pH 7.42 (7.35-7.45)
--- NOTE | 2023-08-02 05:18 | NUR ---
PT NOT ABLE TO WEAN DUE TO FI02 AT 75%
[2023-08-02 06:09] LABS: LYMPHOCYTE 2 % (20.0-51.0); NEUTROPHILS 92 % (42.0-75.2)
[2023-08-02] MEDS ORDERED: methylPREDNISolone Sod Succ 40 MG/ML VIAL IV SCH (08:45)
[2023-08-02] MEDS ORDERED: diphenhydrAMINE 50 MG/ML 1 ML VIAL IV SCH (09:00)
[2023-08-02] MEDS ORDERED: Iohexol 300 - 100 ML VIAL IV ONE (09:46)
--- NOTE | 2023-08-02 11:16 | NUR ---
Initial visit; Patient on the ventilator, Supervisor Paper Coating spoke with family member who was receptive to Supervisor Paper Coating keeping patient in her prayers. He thanked Supervisor Paper Coating for coming in.
--- NOTE | 2023-08-02 14:42 | NUR ---
Patient is laying in bed seems to be comfortable, with Fentanyl and Versed infusing, PRN Vecronium for fighting the vent (Last given at 0200 before my shift). Currently on vent with 75% FiO2, rr20, peep of 8. soft wrist restraints in place without complication. Will report significant changes.
[2023-08-02 17:29] LABS: CLOSTRIDIUM DIFF A/B NEG
[2023-08-02] MEDS ORDERED: Budesonide Neb Susp 0.5 MG/2 ML AMP IH SCH (19:00)
--- NOTE | 2023-08-02 22:21 | NUR ---
PT HAD A SMALL BURST OF PSVT. SELWYN UMAÑA IS AWARE.
[2023-08-03] VITALS (88 sets, daily range): BP systolic 122–167; BP diastolic 62–92; PULSE 68–87; TEMP 98.3–101.1; O2SAT 90–97
[2023-08-03 05:44] LABS: ARTERIAL BLD GAS O2 SATURATION 94.9 % (92-100); ARTERIAL BLD GAS TCO2 CT 30.4; ARTERIAL BLOOD GAS BASE EXCESS 4.4 (-2-2); ARTERIAL BLOOD GAS HCO3 29.1 meq/L (22-26); ARTERIAL BLOOD GAS PCO2 43.3 mmHg (35-45); ARTERIAL BLOOD GAS PO2 71.8 mmHg (80-100); ARTERIAL BLOOD GAS pH 7.45 (7.35-7.45)
--- NOTE | 2023-08-03 07:41 | NUR ---
PATIENT IS SEDATED, INTUBATED, MEDICATIONS INFUSING WITHOUT COMPLICATIONS. ETT 24 CM AT THE TEETH, OG 70 CM AT THE TEETH- TUBE FEEDS CONTINUOUS, TOLERATING 40 ML/HR. BLOOD PRESSURE IS ELEVATED WITH SYSTOLIC IN THE 160'S MAJORITY OF THE NIGHT. WILL NOTIFY FOR SIGNIFICANT CHANGES.
[2023-08-03 08:46] LABS: POTASSIUM 4.3 mEq/L (3.5-4.5)
[2023-08-03 09:39] LABS: CALCIUM 8.7 mg/dL (8.4-10.2); CREATININE, serum 0.59 mg/dL (0.57-1.11); MAGNESIUM 2.3 mg/dL (1.6-2.6)
[2023-08-03 10:13] LABS: HEMATOCRIT 40.4 % (37.0-47.0); HEMOGLOBIN 13.2 g/dl (12.5-16.0); MEAN CELL VOLUME 93 fl (80.0-100.0); MEAN CORPUSCULAR HEMOGLOBIN 30 pg (27-31); MEAN CORPUSCULAR HGB CONC 33 g/dl (33.0-37.0); MEAN PLATELET VOLUME 9.9 fl (7.4-10.4); PLATELET COUNT 187 K/mm3 (130-400); RED BLOOD COUNT 4.34 M/mm3 (4.10-5.30); REDCELL DISTRIBUTION WIDTH-CV 12.9 % (11.5-14.5)
[2023-08-03] MEDS ORDERED: Acetaminophen Oral Susp 325 MG/10.15 ML UD PO PRN (10:15)
[2023-08-03 11:19] LABS: BAND 3 % (0-10); LYMPHOCYTE 2 % (20.0-51.0); NEUTROPHILS 92 % (42.0-75.2); PLATELET ESTIMATE NORMAL (NORMAL)
--- NOTE | 2023-08-03 11:56 | NUR ---
Data: RN was providing care during Process Improvement Analyst rounds. Patient unavailable at this time for Process Improvement Analyst services. Assessment: None at this time. Plan of Care: Chaplains will remain available as needed/requested while Patient is admitted to this hospital.
--- NOTE | 2023-08-03 13:42 | NUR ---
Patient was desating into the high 80's on pressure control settings. Suction, inline and external, was performed, with no relief, ventilator settings had to be adjusted to achieve 94% o2. At this time, no other complications. RT bedside.
--- NOTE | 2023-08-03 14:24 | NUR ---
Data: Director Of Global Talent spoke with Patient's Daughter in waiting area. Director Of Global Talent returned at 2:00 for prayer with Family as requested by Daughter. Assessment: Unable to assess Patient due to her condition. Family at bedside. Plan of Care: Director Of Global Talent provided prayer. Chaplains will remain available as needed/requested while Patient is admitted to this hospital.
--- NOTE | 2023-08-03 14:42 | NUR ---
SW attended family meeting with Dr. Massey. Patient's 4 children at bedside. Discussed options of Trach/PEG vs comfort measures. Family all voiced "she wouldn't want to do all that." Family is asking to have other family members visit and would like to have patient's grandchildren visit right after extubation. Family will let Dr. Massey know when they are ready for extubation.
[2023-08-03 17:15] LABS: ARTERIAL BLD GAS O2 SATURATION 95.8 % (92-100); ARTERIAL BLD GAS TCO2 CT 27.1; ARTERIAL BLOOD GAS BASE EXCESS 0.9 (-2-2); ARTERIAL BLOOD GAS HCO3 25.9 meq/L (22-26); ARTERIAL BLOOD GAS PCO2 42.3 mmHg (35-45); ARTERIAL BLOOD GAS PO2 84.5 mmHg (80-100)
[2023-08-04] VITALS (167 sets, daily range): BP systolic 126–135; BP diastolic 69–80; PULSE 73–93; TEMP 97.6–100.1; O2SAT 89–98
--- NOTE | 2023-08-04 03:36 | NUR ---
PT CONTINUES ON AC/PC. PT TOLERATING THIS MODE OF VENTILATION AND MAINTAINING PEAK PRESSURES BETWEEN 25-29 CMH2O.
[2023-08-04 04:51] LABS: HEMOGLOBIN 11.9 g/dl (12.5-16.0); MEAN CELL VOLUME 96 fl (80.0-100.0); MEAN CORPUSCULAR HEMOGLOBIN 31 pg (27-31); MEAN CORPUSCULAR HGB CONC 32 g/dl (33.0-37.0); MEAN PLATELET VOLUME 10.4 fl (7.4-10.4); PLATELET COUNT 187 K/mm3 (130-400); RED BLOOD COUNT 3.86 M/mm3 (4.10-5.30); REDCELL DISTRIBUTION WIDTH-CV 13.1 % (11.5-14.5)
[2023-08-04 05:14] LABS: CALCIUM 8.7 mg/dL (8.4-10.2); CREATININE, serum 0.56 mg/dL (0.57-1.11); MAGNESIUM 2.4 mg/dL (1.6-2.6); POTASSIUM 4.1 mEq/L (3.5-4.5)
[2023-08-04 05:27] LABS: ARTERIAL BLD GAS O2 SATURATION 96.2 % (92-100); ARTERIAL BLD GAS TCO2 CT 31.8; ARTERIAL BLOOD GAS HCO3 30.4 meq/L (22-26); ARTERIAL BLOOD GAS PCO2 47.8 mmHg (35-45); ARTERIAL BLOOD GAS PO2 84.9 mmHg (80-100); ARTERIAL BLOOD GAS pH 7.42 (7.35-7.45)
[2023-08-04 06:39] LABS: BAND 3 % (0-10); LYMPHOCYTE 4 % (20.0-51.0); NEUTROPHILS 86 % (42.0-75.2); PLATELET ESTIMATE NORMAL (NORMAL)
--- NOTE | 2023-08-04 11:32 | NUR ---
Mr. Dr. Saucedo spoke with family about extending intubation period until Saturday or Saturday to give Ms. Benjamin a further chance to recover. We adjusted settings on the ventilator and are cutting back on sedation to see if she will arouse. At this time, there is no response, even to pain. On Saturday at 0815 there will be a family discussion with the , [employer]. Will continue to undate the family as needed.
--- NOTE | 2023-08-04 19:00 | NUR ---
REPORT RECEIVED FROM SELWYN NAVARRO. PATIENT INTUBATED AND SEDATED AT THIS TIME. SEE TITRATION INTERVENTION FOR CURRENT RATES.
[2023-08-04] MEDS ORDERED: Metoprolol Tartrate 25 MG TAB PO SCH (21:00)
[2023-08-05] VITALS (116 sets, daily range): BP systolic 136–160; BP diastolic 82–103; PULSE 66–88; TEMP 98.3–99.1; O2SAT 94–98
[2023-08-05 04:34] LABS: HEMATOCRIT 39.9 % (37.0-47.0); HEMOGLOBIN 12.9 g/dl (12.5-16.0); MEAN CELL VOLUME 95 fl (80.0-100.0); MEAN CORPUSCULAR HEMOGLOBIN 31 pg (27-31); MEAN CORPUSCULAR HGB CONC 32 g/dl (33.0-37.0); MEAN PLATELET VOLUME 10.1 fl (7.4-10.4); PLATELET COUNT 185 K/mm3 (130-400); RED BLOOD COUNT 4.22 M/mm3 (4.10-5.30); REDCELL DISTRIBUTION WIDTH-CV 13.2 % (11.5-14.5)
[2023-08-05 05:11] LABS: ALBUMIN 2.7 g/dL (3.4-4.8); BILIRUBIN,TOTAL 0.6 mg/dL (0.2-1.2); CALCIUM 8.8 mg/dL (8.4-10.2); CREATININE, serum 0.59 mg/dL (0.57-1.11); MAGNESIUM 2.3 mg/dL (1.6-2.6); PHOSPHOROUS 3.1 mg/dL (2.3-4.7); POTASSIUM 4.2 mEq/L (3.5-4.5); TOTAL PROTEIN 5.7 g/dl (6.2-8.1)
--- NOTE | 2023-08-05 05:18 | NUR ---
UNABLE TO DO SEDATION VACATION AT THIS TIME DUE TO INCREASING SEDATION THROUGHT THE NIGHT FOR PATIENT TO TOLERATE VENT. AT CURRENT RATE PATIENT HAS A RASS OF -1 - -2. PATIENT OPENS EYES SPONTANEOUSLY BUT DOES NOT FOLLOW COMMANDS.
[2023-08-05 05:42] LABS: BAND 1 % (0-10); LYMPHOCYTE 2 % (20.0-51.0); NEUTROPHILS 94 % (42.0-75.2); PLATELET ESTIMATE NORMAL (NORMAL)
[2023-08-05 05:46] LABS: ARTERIAL BLD GAS TCO2 CT 29.1; ARTERIAL BLOOD GAS BASE EXCESS 2.9 (-2-2); ARTERIAL BLOOD GAS HCO3 27.8 meq/L (22-26); ARTERIAL BLOOD GAS PCO2 43.6 mmHg (35-45); ARTERIAL BLOOD GAS PO2 83.7 mmHg (80-100); ARTERIAL BLOOD GAS pH 7.42 (7.35-7.45)
--- NOTE | 2023-08-05 07:00 | NUR ---
BEDSIDE REPORT RECEIVED FROM SELWYN GUADARRAMA. PT ON VENTILATOR IN PRESSURE SUPPORT MODE, 7.5 ETT MEASURING 24CM AT TEETH, PEEP 7, PRESSURE 18, FIO2 50%. OG MEASURES 68 CM AT TEETH, TUBE FEEDINGS INFUSING ORDERED. PT OPENS EYES BUT DOES NOT FOLLOW COMMANDS. SEDATION INFUSING ORDERED, SEE EMAR/TITRATION FLOWSHEET. MAXWELL CATHETER AND RECTAL TUBE IN PLACE TO DEPENDENT DRAINAGE. PT'S SKIN TO COCCYX, VAGINAL AREA, GROIN NOTED TO BE MACERATED, SKIN BARRIER OINTMENT IS BEING USED AND PT IS ON A STRICT TURN AND CLEAN Q2HR SCHEDULE.
[2023-08-05] MEDS ORDERED: methylPREDNISolone Sod Succ 40 MG/ML VIAL IV SCH (08:30)
--- NOTE | 2023-08-05 09:06 | NUR ---
ADVANCED ETT 2CM PER DR JONES TO 25@ THE UPPER LIP. TOLERATED WELL. SXN MODERATE AMOUNT OF PALE YELLOW FROM ETT AND COPIOUS CLEAR FROM ORAL AIRWAY.
--- NOTE | 2023-08-05 10:03 | NUR ---
apartment maintenance worker was notified there is a family meeting scheduled for this patient on Saturday at 8:15 am.
--- NOTE | 2023-08-05 18:44 | NUR ---
SEDATION DECREASED THROUGHOUT DAY PER DR JONES. PT IS MORE ALERT AND RESPONSIVE TO FAMILY BUT DOES NOT FOLLOW NURSE COMMANDS. MAXWELL CONTINUES TO LEAK URINE, REPLACED 16F W/ 18F MAXWELL, LEAKING STILL PRESENT BUT IMPROVED. PT TURNED AND CLEANED AND BARRIER CREAM APPLIED TO COCCYX, PERINEAL AREA, VAGINAL AREA, GROIN EVERY 2-3 HOURS THROUGHOUT SHIFT. SEDATION VACATION NOT DONE THIS EVENING SEDATION HAS BEEN DECREASED THROUGHOUT THE DAY AND PT IS ON MINIMAL AMOUNTS AND TOLERATING VENT WELL.
[2023-08-06] VITALS (8 sets, daily range): BP systolic 126–175; BP diastolic 65–92; PULSE 60–96; TEMP 97.6–100.1
[2023-08-06 03:59] LABS: HEMATOCRIT 37.4 % (37.0-47.0); HEMOGLOBIN 11.9 g/dl (12.5-16.0); MEAN CELL VOLUME 96 fl (80.0-100.0); MEAN CORPUSCULAR HEMOGLOBIN 31 pg (27-31); MEAN CORPUSCULAR HGB CONC 32 g/dl (33.0-37.0); MEAN PLATELET VOLUME 10.3 fl (7.4-10.4); PLATELET COUNT 175 K/mm3 (130-400); REDCELL DISTRIBUTION WIDTH-CV 13.1 % (11.5-14.5)
[2023-08-06 04:20] LABS: CALCIUM 8.7 mg/dL (8.4-10.2); CREATININE, serum 0.55 mg/dL (0.57-1.11); MAGNESIUM 2.3 mg/dL (1.6-2.6); POTASSIUM 4.3 mEq/L (3.5-4.5)
--- NOTE | 2023-08-06 04:35 | NUR ---
CALLED TO BEDSIDE BY RN REGARDING VENT ALARM. AT ARRIVAL PT VITAL SIGNS WERE STABLE BUT THE VENT WAS ALARMING AND NOTICED AN SAFETY VALVE OPEN ALARM ON THE VENT. IMMEDIATELY SUCTIONED PT AND CHECKED CIRCUIT FOR OCCLUSIONS. NO OCCLUSIONS FOUND AND BEGAN BAGGING PT. UNABLE TO REPAIR SAFFETY VALVE AT THE TIME AND SWITCHED THE VENT FOR A NEWLY SST VENT. PT PLACED ON VENT AND TOLERATING WELL. PT VENTILATING AND OXYGENATING WELL.
[2023-08-06 04:37] LABS: BAND 3 % (0-10); LYMPHOCYTE 3 % (20.0-51.0); NEUTROPHILS 89 % (42.0-75.2); PLATELET ESTIMATE NORMAL (NORMAL)
[2023-08-06 06:07] LABS: ARTERIAL BLD GAS O2 SATURATION 94.5 % (92-100); ARTERIAL BLD GAS TCO2 CT 29.8; ARTERIAL BLOOD GAS BASE EXCESS 4.7 (-2-2); ARTERIAL BLOOD GAS HCO3 28.6 meq/L (22-26); ARTERIAL BLOOD GAS PCO2 39.9 mmHg (35-45); ARTERIAL BLOOD GAS PO2 69.8 mmHg (80-100); ARTERIAL BLOOD GAS pH 7.47 (7.35-7.45)
[2023-08-06] MEDS ORDERED: Insulin Lispro (HumaLOG) SQ SCH (08:00)
--- NOTE | 2023-08-06 10:10 | NUR ---
PATIENT IS TOLERATING THE VENT WELL AND DOES NOT APPEAR TO BE IN PAIN OR DISCOMFORT. PATIENT ABLE TO OPEN EYES TO SPEECH BUT NOT FOLLOW COMMANDS. UPWARD GAZE NOTED. MAXWELL CATHETAR AND RECTAL TUBE PATENT. ET TUBE AND OG TUBE IN APPROPRIATE POSITION. BRUSING NOTED ON ABDOMEN FROM SUBQQ INJECTIONS. GENRALIZED EDEMA AND EXORIATION TO BUTTOCKS PRESENT. PATIENT IS BEING REPORITIONED Q2HR. DAUGHTER AT BEDSIDE. BED IS IN LOW POSITION AND IN AN OBSERVABLE AREA. FAMILY DOES NOT HAVE ANY PRESENT QUESTIONS OR CONCERNS.
--- NOTE | 2023-08-06 11:45 | NUR ---
PATIENT WENT TO CT AT THIS TIME WITH RN AND RT. WHILE IN CT, PATIENT BEGAN VOMITTING. PATIENT WAS TURNED TO SIDE QUICKLY AND SUCTIONED.
[2023-08-06] MEDS ORDERED: Cod Liver Oil/Zinc Oxide 40% Ointment 57 GM TUBE TP SCH (14:00)
--- NOTE | 2023-08-06 17:09 | NUR ---
PATIENT BECAME RESTLESS DURING SEDATION VACATION. SEDATION RETURNED TO PREVIOUS TITRATION.
[2023-08-06] MEDS ORDERED: hydrALAZINE 20 MG/ML 1 ML VIAL IV PRN (17:30)
[2023-08-07] VITALS: BP 153/82; PULSE 74; TEMP 98.3
--- NOTE | 2023-08-07 00:02 | NUR ---
1130: report given to medical rn and the pt transferred via bed at thisd time to [facility] with tele. vss.
[2023-08-07 04:00] VITALS: BP 167/87; PULSE 84; TEMP 98.7
[2023-08-07 05:09] LABS: ARTERIAL BLD GAS O2 SATURATION 92.7 % (92-100); ARTERIAL BLD GAS TCO2 CT 27.2; ARTERIAL BLOOD GAS BASE EXCESS 3.1 (-2-2); ARTERIAL BLOOD GAS HCO3 26.1 meq/L (22-26); ARTERIAL BLOOD GAS PCO2 34.9 mmHg (35-45); ARTERIAL BLOOD GAS PO2 65.9 mmHg (80-100); ARTERIAL BLOOD GAS pH 7.49 (7.35-7.45)
[2023-08-07 08:07] LABS: HEMATOCRIT 39.7 % (37.0-47.0); HEMOGLOBIN 13.5 g/dl (12.5-16.0); MEAN CORPUSCULAR HEMOGLOBIN 31 pg (27-31); MEAN CORPUSCULAR HGB CONC 34 g/dl (33.0-37.0); MEAN PLATELET VOLUME 10.3 fl (7.4-10.4); PLATELET COUNT 181 K/mm3 (130-400); REDCELL DISTRIBUTION WIDTH-CV 12.5 % (11.5-14.5)
[2023-08-07 08:11] LABS: MEAN CELL VOLUME 90 fl (80.0-100.0)
[2023-08-07 08:24] LABS: CREATININE, serum 0.53 mg/dL (0.57-1.11); POTASSIUM 3.8 mEq/L (3.5-4.5)
[2023-08-07 08:42] LABS: BAND 4 % (0-10); LYMPHOCYTE 11 % (20.0-51.0); METAMYELOCYTE 1 % (0-0); NEUTROPHILS 80 % (42.0-75.2); PLATELET ESTIMATE NORMAL (NORMAL)
--- NOTE | 2023-08-07 08:45 | NUR ---
Family meeting with Belem Root (BO) & this RN. Dr. Massey discussed events of hospital course, ongoing treatments, test results & assessment findings. Discussed options to continue with aggressive treatment vs. comfort care. Dr. Massey left meeting & discussion with RN & BO continued. Details of both options discussed. Continued aggressive treatment will result in plan for trach/PEG followed by LTACH transfer with likelihood of need for [facility] LT[facility]. Discussed comfort care, extubation, medications & other measures used to make patient comfortable. Discussed that if was not imminent then plan for discharge to hospice, home with hospice or prison with hospice would be discussed tomorrow, as well as transfer to M/S if bed needed. Patient expressed understanding & all questions answered. Provided family with privacy to talk amongst themselves. 0915 - Patient's spouse comes to ICU. Family made decision to proceed with cofort measure today. Details of transition to comfort care discussed with . Chaplain Bingham notified. Dr. Ayush Massey notified & comfort care orders requested. SELWYN Trinh updated on plan of care.
[2023-08-07 09:00] VITALS: BP 122/72; PULSE 99; TEMP 98.5
[2023-08-07] MEDS ORDERED: Albuterol 0.083% Neb Soln 2.5 MG/3 ML UD IH PRN (09:30)
[2023-08-07] MEDS ORDERED: Glycopyrrolate 0.2 MG/ML 1 ML VIAL IV PRN (09:30)
[2023-08-07] MEDS ORDERED: Atropine 1% Ophth Soln 2 ML BOTTLE SL PRN (09:30)
[2023-08-07] MEDS ORDERED: LORazepam 2 MG/ML 1 ML VIAL IV PRN (09:30)
[2023-08-07] MEDS ORDERED: Morphine Oral Concentrate 20 MG/ML UD SL PRN (09:30)
[2023-08-07] MEDS ORDERED: Haloperidol Lactate 5 MG/ML VIAL IV PRN (09:30)
[2023-08-07] MEDS ORDERED: Carboxymethylcellulose PF Ophth 0.4 ML DROPPERETTE OP PRN (09:30)
[2023-08-07] MEDS ORDERED: Scopolamine 1 MG Delivered 3-Day PATCH TD SCH (09:30)
[2023-08-07] MEDS ORDERED: Morphine 4 MG/ML VIAL IV PRN (09:30)
--- NOTE | 2023-08-07 10:05 | NUR ---
Patient extubated to comfort care. Family at bedside during extubation. PRN comfort care meds administered prior to extubation. Will continue to monitor.
--- NOTE | 2023-08-07 10:17 | NUR ---
PT EXTUBATED PER COMFORT CARE. PLACE ON 2 LITERS FOR COMFORT
--- NOTE | 2023-08-07 11:15 | NUR ---
1115- [facility] notified of patient being palliatively extubated.
--- NOTE | 2023-08-07 11:45 | NUR ---
Per [facility] notify with time of .
--- NOTE | 2023-08-07 11:48 | NUR ---
ch. was called to visit pt. Ch. offered prayer over the pt.
--- NOTE | 2023-08-07 13:14 | NUR ---
general distillery worker attended family meeting with patient's family members, Dr. Massey and Nicole, ICU piping supervisor. Family wanted to discuss options. SW was notified later the family members would like to extubate patient as they do not feel she would want trach and peg tube.
--- NOTE | 2023-08-08 09:30 | NUR ---
Family is bedside, patient is on 2 liters of oxygen for comfort, has no fluids infusing at this time. Lomas is draining dark yellow urine, rectal tube is draining sediment dark brown soft stool. Blood pressures are stable, no temperature this morning or overnight. Morphine, ativan, haldol, and robital given for comfort. Family requesting fluids for hydration, educated them on comfort measures, arousablility, mentation, and ability to follow commands will play a large part in safety. I explained that giving fluids, encouraging drinking or eating could exacerbate issues and or cause aspiration. Will continue to educate family on the dying process.
[2023-08-08 11:26] VITALS: O2SAT 87
[2023-08-08 12:26] VITALS: O2SAT 88
[2023-08-08 12:28] VITALS: O2SAT 87
--- NOTE | 2023-08-08 15:00 | NUR ---
PATIENT ARRIVED TO UNIT ASLEEP. HOWEVER NOT RESTING COMFORTABLE, SEE EMAR FOR PIAN MANAGEMENT MEDICATIONS GIVEN. PATIENT HAS 6 FAMILY MEMBERS AT BEDSIDE. CALL LIGHT WITHIN REACH. MAXWELL CATHETER DRAINING OT GRAVITY, STAT LOCK IN PLACE. PATIENT RECTAL TUBE IN PLACE. PICC LINE PATENT.
--- NOTE | 2023-08-08 17:49 | NUR ---
md called for more pain management for comfort care patient. to place orders
[2023-08-08] MEDS ORDERED: fentaNYL 25 MCG 72 HR PATCH TD SCH (18:00)
--- NOTE | 2023-08-08 18:13 | NUR ---
LITO REPOSITIOEND. ALEYDA APPEARS AT THIS TIME TO STILL BE RESTLESS, MOVING HER SHOULDERS AND GROANING. FENTANYL PATCH PLACED. PATIENTS CALL LGITH WITHIN REACH.
--- NOTE | 2023-08-08 18:39 | NUR ---
patient had large formed bowel movement. patient incontinent of both bowl and bladder. patient wiped down, linen changed. new pure wick placed and joanna care provided. patient repositioned. l foot elevated on pillow per othro rec. paitent non wb. call light within reach and fall precautiosn in place,
--- NOTE | 2023-08-08 19:20 | NUR ---
PATIENT RESTING IN BED WITH EYES CLOSED ALERT BUT NON-VERBAL WITH FAMILY PRESENT WITH TV ON WITH NO ACUTE DISTRESS NOTED. PATIENT ON ROOM AIR. PICC LINE TO RIGHT UPPER ARM INTACT WITH NO COMPLICATIONS NOTED. MAXWELL CATHETER INTACT AND DRAINING CLEAR YELLOW URINE. RECTAL TUBE INTACT AND PATENT. FAMILY DENIES ANY NEEDS AT THIS TIME TIME. BED IN LOW POSITION WITH WHEELS LOCKED WITH RAILS UP X3 AND CALL LIGHT WITHIN REACH.
--- NOTE | 2023-08-08 20:28 | NUR ---
PATIENT RESTING IN BED WITH EYES CLOSED WITH NO FAMILY PRESENT WITH TV ON WITH NO ACUTE DISTRESS NOTED. PATIENT ON ROOM AIR. PICC LINE TO RIGHT UPPER ARM INTACT WITH NO COMPLICATIONS NOTED. MAXWELL CATH INTACT, PATENT, AND DRAINING CLEAR YELLOW URINE. RECTAL TUBE INTACT AND PATENT. PATIENT IS NON-VERBAL BUT WITHDRAWS FROM PAIN. ABDOMEN IS NOTED TO BE ROUNDED, SOFT, AND WITH DESCREASED BOWEL SOUNDS. PEDIAL PULSES AND RADIAL PULSES PALPABLE, REGULAR, AND +2. GENERALIZED EDEMA NOTED. PATIENT TOLERATED ASSESSMENT. ALL NEEDS MET. SUCTION SET UP IN AT THIS TIME. BED IN LOW POSITION WITH WHEELS LOCKED WITH RAILS UP X3 AND CALL LIGHT WITHIN REACH.
--- NOTE | 2023-08-09 08:00 | NUR ---
Patient in bed with eyes closed. labored breathing. Patient has intermitten moans. Patient has a picc line on right upper arm. Patient has a galan catheter with yellow output. Patient has a rectal tube no drainage at this time. patient has some generalized edema throughout her body. Patient is reactive to voice but remains non verbal.call light within reach. bed alarm on. bed at lowest position.
[2023-08-09] MEDS ORDERED: SYSTANE 0.4%-0.1 SOL OU (09:25)
[2023-08-09] MEDS ORDERED: TRANSDERM-0.5 MG/21 TD (09:25)
[2023-08-09] MEDS ORDERED: DULCOLAX S10 MG/SUPP RC (09:25)
[2023-08-09] MEDS ORDERED: COMPAZINE25 MG/SUPP RC (09:26)
[2023-08-09] MEDS ORDERED: ROXANOL 20MG20 MG/ML SL (09:27)
[2023-08-09] MEDS ORDERED: ATIVAN 1MG T1 MG/TAB PO (09:27)
[2023-08-09] MEDS ORDERED: FENTANYL 25 MCG TD (09:27)
--- NOTE | 2023-08-09 11:15 | NUR ---
Patient picc line removed by charge nurse. Patient arm pressure per protocol. patient hygene completed. dressed in patient clothing. rectal tube removed. galan staying inplace.Patient family at bedside. EMS coming to transport patient home. Discharde instructions given to patient's daughter. patient daughter verbalized understanding. call light within reach.
--- NOTE | 2023-08-09 11:18 | NUR ---
PICC LINE REMOVED BY THIS RN. PRESSURE HELD, NO ACTIVE BLEEDING, CLEAN DRESSING PLACED. SELWYN BRITO HOLDING PRESSURE AT THIS TIME.
--- NOTE | 2023-08-09 12:00 | NUR ---
Patient was trasnported by EMS to home with hospice care.
--- NOTE | 2023-08-09 15:48 | NUR ---
Business Technology Architect spoke with [facility] at [facility] who advised they can accept patient for a home discharge today. BO spoke wt patient's daughter, Martha who is in agreement with plan. BO scheduled EMS transport for 1130 and notified [facility] and family of transport time. BO faxed discharge orders to [facility] who confirmed they were received. Discharge Plan; Home with [facility]
[2023-08-11] MEDS ORDERED: fentaNYL Patch Removal/Drugbuster TD SCH (18:00)
== END 2023-08-09 12:00 | disposition hospice, home (50) | DRG 207 ==
LOC: ICU 11:16 → MEDICAL 08-08 15:21
PROVIDERS: Internal Medicine Pulmonary Disease; Nurse Practitioner Family; ADMIT Internal Medicine
PROC: 5A1955Z Respiratory Ventilation, Greater than 96 Consecutive Hours (ICD-10-PCS; principal; 2023-07-28)
PROC: 0BH17EZ Insertion of Endotracheal Airway into Trachea, Via Natural or Artificial Opening (ICD-10-PCS; 2023-07-28)
DX: J96.01 Acute respiratory failure with hypoxia (principal); J18.9 Pneumonia, unspecified organism; J45.901 Unspecified asthma with (acute) exacerbation; I47.20 Ventricular tachycardia, unspecified; F17.200 Nicotine dependence, unspecified, uncomplicated; I10 Essential (primary) hypertension; Z66 Do not resuscitate; D72.19 Other eosinophilia; R73.9 Hyperglycemia, unspecified; T38.0X5A Adverse effect of glucocorticoids and synthetic analogues, initial encounter
CPT/HCPCS: C1751; C9113; J0360; J0696; J1100; J1200; J1630; J1644; J1815; J2060; J2250; J2251; J2270; J2371; J2405; J2543; J2704; J2919; J3010; J7120; Q9967